=== PATIENT | female | born 1980 | race Caucasian/White ===

== ENCOUNTER 2024-05-21 16:18 | Emergency (ER) | payer OTHER ==
[2024-05-21] MEDS: Ketorolac 30 MG/ML SDV IM ONE (16:38)
== END 2024-05-21 17:13 | disposition home or self-care (01) ==
LOC: LL.ED 16:18
DX: S93.402A Sprain of unspecified ligament of left ankle, initial encounter (principal); X50.1XXA Overexertion from prolonged static or awkward postures, initial encounter; Y93.89 Activity, other specified; Y99.0 Civilian activity done for income or pay
CPT/HCPCS: 73610-LT; 73630-LT; 96372; 99283; J1885